=== PATIENT | female | born 1990 | race Caucasian/White ===

== ENCOUNTER 2017-03-17 16:28 | Emergency (ER) | payer BC ==
[2017-03-17 16:41] VITALS: BP 115/81; PULSE 81; TEMP 98.4; BMI 22.3
[2017-03-17] MEDS ORDERED: SODIUM CHLORIDE 1,000 ML IV STA (17:04)
[2017-03-17] MEDS ORDERED: ONDANSETRON 4 MG/2 ML VIAL IVPUSH ONE (17:04)
--- NOTE | 2017-03-17 17:09 | PDOC ---
History of Present Illness - General Chief Complaint: Pain Stated Complaint: NAUSEA/VOMITING/LMP 01/30/17 Time Seen by Provider: 03/17/17 16:44 Past History - Past Medical History Allergies/Adverse Reactions: Allergies Allergy/AdvReac Type Severity Reaction Status Date / Time No Known Allergies Allergy Verified 03/17/17 16:33 Home Medications: Ambulatory Orders Erythromycin 0.5% Eye Ointment [Erythromycin 0.5% Eye Ointment -] 1 applic OD TID #1 tube 09/27/14 Ibuprofen [Motrin -] 800 mg PO TID #30 tablet 09/27/14 Anemia: Yes Asthma: No Cancer: No Cardiac Disorders: No CVA: No COPD: No CHF: No Dementia: No Diabetes: No GI Disorders: No Disorders: No HTN: No Hypercholesterolemia: No Liver Disease: No Suicide Attempt (Hx): No Seizures: No Thyroid Disease: No - Surgical History Abdominal Surgery: Yes (TWO D AND C, LIPOSUCTION/TUMMY TUCK 08/2016) Appendectomy: No Cardiac Surgery: No Cholecystectomy: No Lung Surgery: No Neurologic Surgery: No Orthopedic Surgery: No - Reproductive History (#): 3 Para: 1 Spontaneous : 1 - Immunization History Immunization Up to Date: Yes - Psycho/Social/Smoking Cessation Hx Anxiety: No Suicidal Ideation: No Smoking Status: No Smoking History: Never smoked Have you smoked in the past 12 months: No Number of Cigarettes Smoked Daily: 0 Information on smoking cessation initiated: No Hx Alcohol Use: No Drug/Substance Use Hx: No Substance Use Type: None Hx Substance Use Treatment: No *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 - Vital Signs Last Vital Signs Temp Pulse Resp BP Pulse Ox 98.4 F 81 18 115/81 100 03/17/17 16:32 03/17/17 16:32 03/17/17 16:32 03/17/17 16:32 03/17/17 16:32
--- NOTE | 2017-03-17 17:10 | PDOC ---
Attending Attestation - Resident Resident Name: Thong Carbajal - ED Attending Attestation I have performed the following: I have examined & evaluated the patient, The case was reviewed & discussed with the resident, I agree w/resident's findings & plan, Exceptions are as noted - HPI HPI: 03/17/17 17:12 26 yo female p/w nausea and vomiting, had positive home test.Denies vaginal bleeding. . PSH tummy tuck inn 08/201603/17/17 17:16 - Physicial Exam PE: 03/17/17 19:26 Well-nourished, well-developed 26-year-old female in no acute distress. Within normal limits. Neck supple Lungs clear to auscultation. CVS regular rate and rhythm S1, S2 Abdominal exam flat, nontender, normal bowel sounds. Extremities within normal limits. Neuro alert and oriented 3, ambulatory - Medical Decision Making 03/17/17 17:15 HCG pending,pt to receive IVF,anti emetics,cbc and comp. If positive urine preg, will get bhcg
[2017-03-17] MEDS ORDERED: ONDANSETRON 4 MG/2 ML VIAL ONE (17:13)
[2017-03-17 17:26] LABS: BASOPHIL 1.4 % (0-2.0); EOSINOPHIL 1.2 % (0-4.5); MCH 22.2 pg (25.7-33.7); MCHC 31.8 g/dl (32.0-36.0); MEAN CELL VOLUME 69.8 fl (80-96); MEAN PLT VOLUME 9.1 fl (7.5-11.1); NEUTROPHILS 44.2 % (42.8-82.8); PLATELET COUNT 191 K/MM3 (134-434); RDW 14.6 % (11.6-15.6); WHITE BLOOD COUNT 4.9 K/mm3 (4.0-10.0)
[2017-03-17 17:34] LABS: URINE APPEARANCE CLOUDY; URINE BILIRUBIN NEGATIVE (NEGATIVE); URINE BLOOD 2+ (NEGATIVE); URINE COLOR YELLOW; URINE GLUCOSE (UA) NEGATIVE (NEGATIVE); URINE KETONE NEGATIVE (NEGATIVE); URINE NITRITE NEGATIVE (NEGATIVE); URINE PROTEIN NEGATIVE (NEGATIVE); URINE UROBILINOGEN NEGATIVE mg/dL (0.2-1.0)
--- NOTE | 2017-03-17 17:41 | PDOC ---
History of Present Illness - General Chief Complaint: Pain Stated Complaint: NAUSEA/VOMITING/LMP 01/30/17 Time Seen by Provider: 03/17/17 16:44 History Source: Patient Exam Limitations: No Limitations - History of Present Illness Initial Comments: 03/17/17 17:08 Patient is a 26F here today complaining of nausea and vomiting along with a positive home test. LMP was 01/30/17. Patient was denies fevers, chills, abdominal pain and vaginal bleeding. She endorses decreased PO intake and light headedness. She denies shortness of breath, chest pain and any contractions. Her prior births were uncomplicated vaginal deliveries. She has had no prior workup before today. Past History - Past Medical History Allergies/Adverse Reactions: Allergies Allergy/AdvReac Type Severity Reaction Status Date / Time No Known Allergies Allergy Verified 03/17/17 16:33 Home Medications: Ambulatory Orders Erythromycin 0.5% Eye Ointment [Erythromycin 0.5% Eye Ointment -] 1 applic OD TID #1 tube 09/27/14 Ibuprofen [Motrin -] 800 mg PO TID #30 tablet 09/27/14 Ondansetron [Ondansetron Odt] 8 mg PO BID #10 tab.rapdis 03/17/17 Anemia: Yes Asthma: No Cancer: No Cardiac Disorders: No CVA: No COPD: No CHF: No Dementia: No Diabetes: No GI Disorders: No Disorders: No HTN: No Hypercholesterolemia: No Liver Disease: No Suicide Attempt (Hx): No Seizures: No Thyroid Disease: No - Surgical History Abdominal Surgery: Yes (TWO D AND C, LIPOSUCTION/TUMMY TUCK 08/2016) Appendectomy: No Cardiac Surgery: No Cholecystectomy: No Lung Surgery: No Neurologic Surgery: No Orthopedic Surgery: No - Reproductive History (#): 3 Para: 1 Spontaneous : 1 - Immunization History Immunization Up to Date: Yes - Psycho/Social/Smoking Cessation Hx Anxiety: No Suicidal Ideation: No Smoking Status: No Smoking History: Never smoked Have you smoked in the past 12 months: No Number of Cigarettes Smoked Daily: 0 Information on smoking cessation initiated: No Hx Alcohol Use: No Drug/Substance Use Hx: No Substance Use Type: None Hx Substance Use Treatment: No Review of Systems - Review of Systems Comments:: 03/17/17 17:41 GENERAL/CONSTITUTIONAL: No fever or chills. Positive for weakness. HEAD, EYES, EARS, NOSE AND THROAT: No change in vision. No sore throat. CARDIOVASCULAR: No chest pain or shortness of breath RESPIRATORY: No cough, wheezing, or hemoptysis. GASTROINTESTINAL: Positive for nausea and vomiting. Negative for diarrhea or constipation. GENITOURINARY: No dysuria, frequency, or change in urination. SKIN: No rash NEUROLOGIC: Positive for headache. Negative for loss of consciousness, or change in strength/sensation. HEMATOLOGIC/LYMPHATIC: No anemia, easy bleeding, or history of blood clots. ALLERGIC/IMMUNOLOGIC: No hives or skin allergy. *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 - Vital Signs Last Vital Signs Temp Pulse Resp BP Pulse Ox 98.4 F 81 18 115/81 100 03/17/17 16:32 03/17/17 16:32 03/17/17 16:32 03/17/17 16:32 03/17/17 16:32 - 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 Comments: 03/17/17 17:42 GENERAL: Awake, alert, and fully oriented, in no acute distress HEAD: No signs of trauma, normocephalic, atraumatic EYES: PERRLA, EOMI, sclera anicteric, conjunctiva clear ENT: Auricles normal inspection, hearing grossly normal, nares patent, oropharynx clear without exudates. Dry mucosa LUNGS: No distress, speaks full sentences, clear to auscultation bilaterally HEART: Regular rate and rhythm, normal S1 and S2, no murmurs, rubs or gallops, peripheral pulses normal and equal bilaterally. ABDOMEN: Soft, nontender, normoactive bowel sounds. No guarding, no rebound. No masses EXTREMITIES: Normal inspection, Normal range of motion, no edema. No clubbing or cyanosis. NEUROLOGICAL: Cranial nerves II through XII grossly intact. Normal speech, no focal sensorimotor deficits SKIN: Warm, Dry, no rashes or lesions noted. ED Treatment Course - LABORATORY CBC & Chemistry Diagram: 03/17/17 17:08 03/17/17 17:08 Medical Decision Making - Medical Decision Making 03/17/17 17:43 26F with no significant medical history here today complaining of nausea and vomiting after a positive test. Patient appears tired. Vital signs normal and stable. Upreg positive. Will evaluate with labs, quant, and ultrasound. 03/17/17 17:47 Laboratory Tests 03/17/17 03/17/17 17:08 17:08 WBC 4.9 D Hgb 11.9 D Hct 37.4 D Plt Count 191 Urine HCG, Qual Positive CBC normal, preg test positive. *DC/Admit/Observation/Transfer Diagnosis at time of Disposition: Nausea and vomiting in Qualifiers: Weeks of gestation: unspecified Qualified Code(s): Z34.90 - Encounter for supervision of normal , unspecified, unspecified trimester - Prescriptions Prescriptions: Ondansetron [Ondansetron Odt] 8 mg PO BID #10 tab.pinkydis
[2017-03-17 17:56] LABS: ALBUMIN 3.7 g/dl (3.4-5.0); ANION GAP 8 (8-16); BILIRUBIN,TOTAL 0.2 mg/dL (0.2-1.0); CALCIUM 9.1 mg/dL (8.5-10.1); CO2 25 mmol/L (21-32); CREATININE 0.6 mg/dL (0.55-1.02); GLUCOSE,RANDOM 86 mg/dL (74-106); SGOT/AST 11 U/L (15-37); SGPT/ALT 18 U/L (12-78); TOT PROT 7.2 g/dl (6.4-8.2)
[2017-03-17 18:00] LABS: HYPOCHROMIA 1+; MACROCYTOSIS 1+; MICROCYTOSIS 1+; OVALOCYTE 1+; PLATELET ESTIMATE ADEQUATE (NORMAL); POIKILOCYTOSIS 1+
[2017-03-17 18:11] LABS: ALK PHOS 34 U/L (45-117)
[2017-03-17 18:52] LABS: URINE BACTERIA RARE /hpf (NONE SEEN); URINE MUCUS FEW; URINE RBC 4 /hpf (0-3); URINE WBC 18 /hpf (3-5)
--- NOTE | 2017-03-17 18:56 | PDOC ---
*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 - Vital Signs Signed out to me by Dr. Earle Zimmerman. presents with n/v while , taking some PO, controlled here in the ED with Zofran, no US or care yet, awaiting US early OB here in the ED, LMP 01/30/17. If this shows IUP without complication she likely can go home. Last Vital Signs Temp Pulse Resp BP Pulse Ox 98.4 F 81 18 115/81 100 03/17/17 16:32 03/17/17 16:32 03/17/17 16:32 03/17/17 16:32 03/17/17 16:32 ED Treatment Course - LABORATORY CBC & Chemistry Diagram: 03/17/17 17:08 03/17/17 17:08 - ADDITIONAL ORDERS Additional order review: Laboratory Results 03/17/17 03/17/17 17:08 17:08 Sodium 136 Potassium 3.9 Chloride 103 Carbon Dioxide 25 Anion Gap 8 BUN 12 D Creatinine 0.6 D Creat Clearance w eGFR > 60 Random Glucose 86 Calcium 9.1 Total Bilirubin 0.2 AST 11 L D ALT 18 D Alkaline Phosphatase 34 L D Total Protein 7.2 Albumin 3.7 D Beta HCG, Quant 44719.0 Urine Color Yellow Urine Appearance Cloudy Urine pH 5.0 Urine Protein Negative Urine Glucose (UA) Negative Urine Ketones Negative Urine Blood 2+ H Urine Nitrite Negative Urine Bilirubin Negative Urine Urobilinogen Negative Urine HCG, Qual Positive 03/17/17 17:08 RBC 5.35 H D MCV 69.8 L MCHC 31.8 L RDW 14.6 MPV 9.1 Neutrophils % 44.2 Lymphocytes % 44.2 H Monocytes % 9.0 Eosinophils % 1.2 Basophils % 1.4 D - Medications Given in the ED: ED Medications Discontinued Medications Generic Name Dose Route Start Last Admin Trade Name Freq PRN Reason Stop Dose Admin Sodium Chloride 1,000 mls @ 1,000 mls/hr 03/17/17 17:04 03/17/17 17:43 Normal Saline - IV 03/17/17 18:03 1,000 mls/hr ASDIR STA Administration Ondansetron HCl 4 mg 03/17/17 17:04 03/17/17 17:00 Zofran Injection IVPUSH 03/17/17 17:05 4 mg ONCE ONE Administration Medical Decision Making - Medical Decision Making Pt's US results showing proper placement IUP. UA with 18 WBC, granted there are moderate epithelial cells. Low threshold to treat for UTI; will send Rx for Keflex to her pharmacy. She is appropriate for OP management with [facility]. Return precautions are discussed and she is discharged home. *DC/Admit/Observation/Transfer Diagnosis at time of Disposition: Nausea and vomiting in Qualifiers: Weeks of gestation: unspecified Qualified Code(s): Z34.90 - Encounter for supervision of normal , unspecified, unspecified trimester UTI (urinary tract infection) Qualifiers: Urinary tract infection type: acute cystitis Hematuria presence: without hematuria Qualified Code(s): N30.00 - Acute cystitis without hematuria - Discharge Dispostion Disposition: HOME Condition at time of disposition: Stable Admit: No - Prescriptions Prescriptions: Cephalexin [Keflex] 500 mg PO BID #14 capsule Ondansetron [Ondansetron Odt] 8 mg PO BID #10 tab.rapdis - Patient Instructions Printed Discharge Instructions: DI for Hyperemesis Gravidarum Additional Instructions: You were seen today for nausea and vomiting during . Some of this is likely normal, but we also checked your urine and found some white blood cells which could indicate a bladder infection. We are sending a prescription for antibiotic to your pharmacy, as well as Zofran for nausea. Please follow up with your PCP or [facility] doctor, or you can return to the ED for any new or worsening symptoms like fever, severe back pain, or vomiting that you cannot control with medications.
== END 2017-03-17 20:31 | disposition home or self-care (01) ==
LOC: JER 16:28
PROC: 3E0337Z Introduction of Electrolytic and Water Balance Substance into Peripheral Vein, Percutaneous Approach (ICD-10-PCS; principal; 2017-03-17)
PROC: 3E033GC Introduction of Other Therapeutic Substance into Peripheral Vein, Percutaneous Approach (ICD-10-PCS; 2017-03-17)
DX: O26.891 Other specified pregnancy related conditions, first trimester (principal); O21.0 Mild hyperemesis gravidarum; Z3A.01 Less than 8 weeks gestation of pregnancy
CPT/HCPCS: 36415; 76817-TC; 80053; 81003; 81015; 84702; 84703; 85025; 99283-25

== ENCOUNTER 2017-07-12 15:49 | Emergency (ER) | payer BC, OTHER ==
[2017-07-12 15:55] VITALS: BMI 25.7
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
[2017-07-12] MEDS ORDERED: ACETAMINOPHEN 325 MG TABLET (FP) PO ONE (17:28)
[2017-07-12 17:39] LABS: BASO % 0.4 % (0-2.0); EOS % 3.9 % (0-4.5); HEMATOCRIT 27.5 % (32.4-45.2); HEMOGLOBIN 8.8 GM/dL (10.7-15.3); LYMPH % 26.4 % (8-40); MCH 22.5 pg (25.7-33.7); MCHC 31.9 g/dl (32.0-36.0); MEAN CELL VOLUME 70.7 fl (80-96); MEAN PLT VOLUME 9.1 fl (7.5-11.1); MONO % 9.8 % (3.8-10.2); NEUT % 59.5 % (42.8-82.8); PLATELET COUNT 192 K/MM3 (134-434); RBC 3.89 M/mm3 (3.60-5.2); RDW 13.6 % (11.6-15.6); URINE APPEARANCE CLOUDY; URINE BILIRUBIN NEGATIVE (NEGATIVE); URINE BLOOD NEGATIVE (NEGATIVE); URINE COLOR YELLOW; URINE GLUCOSE (UA) NEGATIVE (NEGATIVE); URINE KETONE NEGATIVE (NEGATIVE); URINE NITRITE NEGATIVE (NEGATIVE); URINE PROTEIN NEGATIVE (NEGATIVE); URINE UROBILINOGEN NEGATIVE mg/dL (0.2-1.0); WHITE BLOOD COUNT 6.8 K/mm3 (4.0-10.0)
[2017-07-12 17:40] LABS: URINE LEUK ESTERASE 3+ (NEGATIVE)
[2017-07-12] MEDS ORDERED: ACETAMINOPHEN 325 MG TABLET (FP) ONE (17:57)
[2017-07-12 18:16] LABS: ANION GAP 9 (8-16); BLOOD UREA NITROGEN 7 mg/dL (7-18); CALCIUM 8.9 mg/dL (8.5-10.1); CHLORIDE 105 mmol/L (98-107); CO2 24 mmol/L (21-32); CREATININE 0.5 mg/dL (0.55-1.02); GLUCOSE,RANDOM 71 mg/dL (74-106); POTASSIUM 3.8 mmol/L (3.5-5.1); SGOT/AST 18 U/L (15-37); SGPT/ALT 25 U/L (12-78); SODIUM 138 mmol/L (136-145); TOT PROT 6.5 g/dl (6.4-8.2)
[2017-07-12 18:17] LABS: ALK PHOS 41 U/L (45-117); BILIRUBIN,TOTAL < 0.1 mg/dL (0.2-1.0); EPI CELLS MODERATE /HPF (FEW); URINE BACTERIA FEW /hpf (NONE SEEN); URINE MUCUS RARE
--- NOTE | 2017-07-12 18:21 | PDOC ---
Attending Attestation - Resident Resident Name: Sina Montelongo - ED Attending Attestation I have performed the following: I have examined & evaluated the patient, The case was reviewed & discussed with the resident, I agree w/resident's findings & plan, Exceptions are as noted - HPI HPI: 07/12/17 18:20 26 yo female who reports being 23 weeks has c/o dizziness ,shortness of breath . 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 She is 23 weeks and is followed by Dr Naqvi -HPI Nausea,dizzines,sob PMH anemia -in reviewing her old medical records she has been admitted in 2013 for symptomatic anemia and received iron transfusions -she also had a holter monitor and echo at the time
[2017-07-12] MEDS ORDERED: NITROFURANTOIN MACROCRYSTAL 50 MG CAPSULE (FP) PO SCH (19:00)
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
[2017-07-12 19:29] VITALS: BP 106/64; PULSE 77; TEMP 98.4
[2017-07-12] MEDS ORDERED: NITROFURANTOIN MACROCRYSTAL 50 MG CAPSULE (FP) ONE (19:30)
== END 2017-07-12 19:34 | disposition home or self-care (01) ==
LOC: JER 15:49
DX: O26.892 Other specified pregnancy related conditions, second trimester (principal); O23.43 Unspecified infection of urinary tract in pregnancy, third trimester; E16.1 Other hypoglycemia; Z3A.23 23 weeks gestation of pregnancy
CPT/HCPCS: 36415; 76815; 80053; 81003; 81015; 85025; 99282-25

== ENCOUNTER 2017-11-01 10:10 | Inpatient (IN) | payer BC ==
[2017-11-01] MEDS ORDERED: ELECTROLYTE-148 SOLN 500 ML IV ONE (10:11)
[2017-11-01] MEDS ORDERED: ELECTROLYTE-148 SOLN 1,000 ML IV ONE (10:25)
[2017-11-01] MEDS ORDERED: TUBERCULIN PPD 5 TU/0.1ML SYRINGE (IN PATIENT USE ONLY) ID ONE ×2 (10:29→13:45)
[2017-11-01] MEDS ORDERED: ONDANSETRON 4 MG/2 ML VIAL IVPUSH PRN (10:36)
[2017-11-01] MEDS ORDERED: morphine SULFATE/Preservative Free 0.5 MG/ML (1cc Syringe) ONE (10:44)
[2017-11-01] MEDS ORDERED: BUPIVACAINE 0.75% IN DEXTROSE/PF 2ML AMPULE NR ONE (10:47)
[2017-11-01] MEDS ORDERED: SODIUM CHLORIDE 0.9% P/F 10 ML VIAL IJ ONE (10:58)
[2017-11-01] MEDS ORDERED: ceFAZolin SODIUM 1 GM VIAL ONE (10:58)
[2017-11-01 11:01] LABS: BASO % 0.5 % (0-2.0); EOS % 0.7 % (0-4.5); HEMATOCRIT 30.7 % (32.4-45.2); HEMOGLOBIN 9.8 GM/dL (10.7-15.3); LYMPH % 37.2 % (8-40); MCH 22.8 pg (25.7-33.7); MCHC 31.9 g/dl (32.0-36.0); MEAN CELL VOLUME 71.6 fl (80-96); MEAN PLT VOLUME 8.8 fl (7.5-11.1); MONO % 8.8 % (3.8-10.2); NEUT % 52.8 % (42.8-82.8); PLATELET COUNT 115 K/MM3 (134-434); RBC 4.29 M/mm3 (3.60-5.2); RDW 18.5 % (11.6-15.6); WHITE BLOOD COUNT 5.6 K/mm3 (4.0-10.0)
[2017-11-01] MEDS ORDERED: KETOROLAC TROMETHAMINE 30 MG/1 ML VIAL ONE (11:08)
[2017-11-01] MEDS ORDERED: CITRIC ACID/SODIUM CITRATE 30 ML UNIT-DOSE CUP PO ONE (11:11)
[2017-11-01 11:15] LABS: INR 1.03 (0.82-1.09); PROTHROMBIN TIME (PATIENT) 11.6 SEC (9.7-13.0)
[2017-11-01 11:17] LABS: ACTIVATED PTT 27.9 SECONDS (26.9-34.4)
[2017-11-01 11:27] LABS: ANION GAP 7 (8-16); BLOOD UREA NITROGEN 6 mg/dL (7-18); CHLORIDE 107 mmol/L (98-107); CO2 23 mmol/L (21-32); CREATININE 0.6 mg/dL (0.55-1.02); GLUCOSE,RANDOM 76 mg/dL (74-106); POTASSIUM 3.5 mmol/L (3.5-5.1); SODIUM 137 mmol/L (136-145)
[2017-11-01 11:29] VITALS: BMI 28.3
[2017-11-01] MEDS ORDERED: ePHEDrine SULFATE 50 MG/1 ML AMPULE ONE (11:31)
[2017-11-01 11:51] LABS: ARTERIAL BLOOD GAS BASE EXCESS -2.1 meq/l (-2-2); ARTERIAL BLOOD GAS PCO2 46.8 mmHg (35-45); ARTERIAL BLOOD GAS pH 7.32 (7.35-7.45)
[2017-11-01 11:53] LABS: ARTERIAL BLD GAS O2 SATURATION 17.5 % (90-98.9); ARTERIAL BLOOD GAS PO2 10.8 mmHg (80-100)
[2017-11-01 11:55] LABS: VENOUS PC02 41.5 mmHg (38-52); VENOUS PH 7.36 (7.32-7.42)
[2017-11-01 11:58] LABS: VENOUS PO2 18.1 mmHg (28-48)
[2017-11-01] MEDS ORDERED: ELECTROLYTE-148 SOLN 1,000 ML IV SCH (12:34)
[2017-11-01] MEDS ORDERED: OXYTOCIN 20 UNITS in 0.9% NS 20 UNIT/1,000 ML INFUS.BAG IV ONE ×3 (12:48→16:30)
[2017-11-01 13:24] LABS: BASO % 0.2 % (0-2.0); EOS % 0.2 % (0-4.5); HEMATOCRIT 27.6 % (32.4-45.2); HEMOGLOBIN 8.8 GM/dL (10.7-15.3); LYMPH % 18.6 % (8-40); MCH 23.1 pg (25.7-33.7); MEAN CELL VOLUME 72.3 fl (80-96); MEAN PLT VOLUME 9.4 fl (7.5-11.1); MONO % 4.9 % (3.8-10.2); NEUT % 76.1 % (42.8-82.8); PLATELET COUNT 116 K/MM3 (134-434); RBC 3.82 M/mm3 (3.60-5.2); RDW 18.7 % (11.6-15.6); WHITE BLOOD COUNT 7.8 K/mm3 (4.0-10.0)
[2017-11-01] MEDS ORDERED: OXYTOCIN 20 UNITS in 0.9% NS 20 UNIT/1,000 ML INFUS.BAG IV SCH (14:00)
[2017-11-01] MEDS ORDERED: WITCH HAZEL 50% (TUCKS) 40 PAD/JAR PAD TP PRN (17:24)
[2017-11-01] MEDS ORDERED: METHYLERGONOVINE MALEATE 0.2 MG/1 ML AMP IM PRN (17:24)
[2017-11-01] MEDS ORDERED: D5W-LR W/ 20 UNITS OXYTOCIN 1,000 ML IV SCH (17:30)
--- NOTE | 2017-11-01 17:34 | HP ---
Past Medical History - Primary Care Physician PCP:: Quincy Shi - Admission Chief Complaint: 26yo female P2 with at EGA 39w3d admitted with spontaneous active labor and active genital HSV outbreak. History of Present Illness: Pt was diagnosed with active genital HSV outbreak on 10/30/2017 and started on Valtrex. Pt presents today with active spontaneous labor and 8cm dilated, no SROM. 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: Alzheimer's, CVA, Dementia, Migraine, Multiple Sclerosis, Peripheral Neuropathy, Parkinson's, Seizure, Syncope, TIA, Vertigo, Other Cardiovascular: No: AFIB, Aneurysm, Aortic Insufficiency, Aortic Stenosis, CAD, CHF, Deep Vein Thrombosis, HTN, Hyperlipdemia, MA, Mitral Insufficiency, Mitral Stenosis, Murmur, Pulmonary Hypertension, Other Pulmonary: No: Asthma, Bronchitis, Cancer, COPD, O2 Dependent, Pneumonia, Previously Intubated, Pulmonary Embolus, Pulmonary Fibrosis, Sleep Apnea, Other Gastrointestinal: No: Ascites, Cancer, Constipation, Crohn's Disease, Diverticulitis, Diverticulosis, Esophageal Varices, Gastritis, GERD, GI Bleed, Hemorrhoids, Hiatal Hernia, Inflamatory Bowel Disease, Irritable Bowel Disease, Pancreatitis, Peptic Ulcer Disease, Ulcerative Colitis, Other Hepatobiliary: No: Cirrhosis, Cholelithiasis, Cholecystitis, Choledocholithiasis , Hepatitis A, Hepatitis B, Hepatitis C, Other Renal/: Yes: UTI. No: Renal Failure, Renal Inusuff, BPH, Cancer, Hematuria, Hemodialysis, Neurogenic Bladder, Renal Calculi, Other Reproductive: Yes: Fibroids ...: 4 ...Para: 2 ...Term: 2 ...: 1 ...Spon : 1 ...Induced : 0 ...Multiple Gestation: 0 ...LMP: 01/29/17 ... Weeks Gestation by Dates: 39.3 ...EDC by Dates: 11/04/17 ...EDC by Sono: 11/05/17 Heme/Onc: Yes: Anemia Infectious Disease: Yes: STD's (Genital HSV) Psych: No: Addictions, Anxiety, Bipolar, Depression, Panic, Psychosis, Schizophrenia, Other Musculoskeletal: No: Bursitis, Chronic low back pain, Hemiparesis, Hemiplegia, Osteoarthritis, Paraplegia, Other Rheumatology: No: Fibromyalgia, Gout, Lupus, Rheumatoid Arthritis, Sarcoidosis, Vasculitis, Other ENT: No: Allergic Rhinitis, Sinusitis, Other Endocrine: No: Arlington's Disease, Casanova's Disease, Diabetes Insipidus, Diabetes Mellitus, Hyperparathyroidism, Hyperthyroidism, Hypothyroidism, Osteopenia, SIADH, Other Dermatology: No: Basal Cell, Cellulitis, Eczema, Melanoma, Psoriasis, Squamous Cell, Other - Past Surgical History Hx Myomectomy: No Hx Transabdominal Cerclage: No Additional Surgical History: Abdominoplasty, Breast augmentation, D&C - Smoking History Smoking history: Never smoked Have you smoked in the past 12 months: No Aproximately how many cigarettes per day: 0 - Alcohol/Substance Use Hx Alcohol Use: No History of Substance Use: reports: None - Social History Usual Living Arrangement: Yes: With Child ADL: Independent 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 History of Recent Travel: No Home Medications - Allergies Allergies/Adverse Reactions: Allergies Allergy/AdvReac Type Severity Reaction Status Date / Time No Known Allergies Allergy Verified 11/01/17 11:45 - Home Medications Home Medications: Ambulatory Orders Iron 1 tab PO DAILY 10/30/17 Family Disease History - Family Disease History Family History: Unable to Obtain (Pt with labor pain) Review of Systems - Review of Systems Constitutional: reports: Other (Labor pain) Eyes: reports: No Symptoms HENT: reports: No Symptoms Neck: reports: No Symptoms Cardiovascular: reports: No Symptoms Respiratory: reports: No Symptoms Gastrointestinal: reports: No Symptoms Genitourinary: reports: Other (Labor pain) Breasts: reports: No Symptoms Reported Musculoskeletal: reports: No Symptoms Integumentary: reports: No Symptoms Neurological: reports: No Symptoms Endocrine: reports: No Symptoms Hematology/Lymphatic: reports: No Symptoms Psychiatric: reports: No Symptoms Pain Intensity: 9 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 - Maternity Vital Signs: Vital Signs Temperature 97.9 F 11/01/17 14:49 Pulse Rate 98 H 11/01/17 14:49 Respiratory Rate 20 11/01/17 17:00 Blood Pressure 103/71 11/01/17 14:49 O2 Sat by Pulse Oximetry (%) 100 11/01/17 12:45 Constitutional: Yes: Well Nourished, Moderate Distress (labor pain) Eyes: Yes: WNL, Conjunctiva Clear, EOM Intact HENT: Yes: WNL, Atraumatic, Normocephalic Neck: Yes: WNL, Supple, Trachea Midline Cardiovascular: Yes: WNL, Regular Rate and Rhythm Lungs: Clear to auscultation, Normal air movement - Abdominal Exam/OB Fundal Height: 37 Number of Fetuses: Single Presentation: Vertex Contractions: Yes Regularity: Regular Intensity: Mod/Strong Monitor Mode: External Heart Rate (range): 150 Heart Rate Location: Midline Category: I Accelerations: Non-Uniform Decelerations: None - Vaginal Exam/OB Vaginal Bleediing: No Speculum Exam: No Dilatation (cm): 8 Effacement (%): 100 Amniotic Membrane Status: Intact Presentation: Vertex/Position Station: -1 - 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 Musculoskeletal: Yes: WNL Extremities: Yes: WNL Edema: No Integumentary: Yes: WNL, Other (abdominoplasty hypertrophic scar) Deep Tendon Reflex Grade: Normal +2 ...Motor Strength: WNL Psychiatric: Yes: WNL, Alert. No: Oriented - Labs Lab Results: CBC, BMP 11/01/17 13:10 11/01/17 10:40 Hemorrhage Risk Assessment - Risk Factors Medium Risk Factors: Yes: None High Risk Factors: Yes: None Risk Score: 1 Risk Level: Medium Risk Assessment/Plan 26yo female P2 with at EGA 39w3d admitted with spontaneous active labor and active genital HSV outbreak. Fetus with Category I tracing. Pt with active HSV outbreak. We discussed delivery options and risks of vertical HSV transmission. ACOG recommendations were discussed at length. Patient was explained that delivery does not completely prevent vertical transmission to the . Transmission has been documented in the setting of sxn performed before membrane rupture. Risks, benefits, alternatives of sxn were explained, including but not limited to infection, bleeding, trauma/ injury to underlying organs and structures (e.g. ureter, bladder, bowel, etc.). Possible need for blood transfusion or additional surgery to repair any injuries, were discussed. Patient understands that all surgical treatments have risks and no guarantees can be provided. The patient requested to proceed with surgery. The patient requested a section. Neonatology, anesthesia, and surgical elastic knitter were called in. Plan to proceed with emergency delivery. 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 - 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 Pelvic Exam: Yes: ulcers (aroung perineum/vulva)
[2017-11-01] MEDS ORDERED: IBUPROFEN 800 MG/8 ML IJ IVPB PRN (18:02)
--- NOTE | 2017-11-01 18:14 | OP ---
Operative Note - Note: Operative Date: 11/01/17 Pre-Operative Diagnosis: at EGA 39w 3d with active spont labor and genital HSV outbreak Operation: Primary LT C/S Findings: Live baby girl in vtx presentation, no meconium in amniotic fluid. 9 and 9. Post-Operative Diagnosis: Same as Pre-op Surgeon: Quincy Shi Electrical Automation Engineer: Reinaldo Williamson Anesthesiologist/CHIEF ESTIMATOR: Vinh Carvajal Anesthesia: Spinal Specimens Removed: Placenta Estimated Blood Loss (mls): 700 Drains & Tubes with Location: Oliveira cath Drains, Volume Out (mls): 75 Blood Volume Replaced (mls): 0 Fluid Volume Replaced (mls): 1,800 Operative Report Dictated: Yes
[2017-11-01 19:09] LABS: BASO % 0.3 % (0-2.0); HEMATOCRIT 25.7 % (32.4-45.2); HEMOGLOBIN 8.5 GM/dL (10.7-15.3); LYMPH % 14.5 % (8-40); MCH 23.6 pg (25.7-33.7); MCHC 32.9 g/dl (32.0-36.0); MEAN CELL VOLUME 71.8 fl (80-96); MEAN PLT VOLUME 9.2 fl (7.5-11.1); MONO % 6.3 % (3.8-10.2); NEUT % 78.9 % (42.8-82.8); PLATELET COUNT 104 K/MM3 (134-434); RBC 3.58 M/mm3 (3.60-5.2); RDW 18.3 % (11.6-15.6); WHITE BLOOD COUNT 9.9 K/mm3 (4.0-10.0)
--- NOTE | 2017-11-02 07:25 | PN ---
Post Progress Note - Subjective Subjective: No complaints Post Day: 1 Type of Delivery: Repeat C/S Vital Signs: Vital Signs Temperature 98.6 F 11/02/17 06:00 Pulse Rate 67 11/02/17 06:00 Respiratory Rate 20 11/02/17 07:00 Blood Pressure 102/71 11/02/17 06:00 O2 Sat by Pulse Oximetry (%) 100 11/01/17 12:45 Breast Exam: Yes: Soft Uterus: Yes: Fundus Firm, Fundus below umbilicus, Non-tender Incision: Yes: Dressing dry and intact Abdomen/GI: Yes: Abdomen soft, Tolerating PO Lochia: Yes: Rubra Lochia, amount: Small Extremities: Yes: Calves non-tender Perineum: Yes: Intact - Labs Labs: CBC WBC 9.9 K/mm3 (4.0-10.0) 11/01/17 18:45 RBC 3.58 M/mm3 (3.60-5.2) L 11/01/17 18:45 Hgb 8.5 GM/dL (10.7-15.3) L 11/01/17 18:45 Hct 25.7 % (32.4-45.2) L 11/01/17 18:45 MCV 71.8 fl (80-96) L 11/01/17 18:45 MCH 23.6 pg (25.7-33.7) L 11/01/17 18:45 MCHC 32.9 g/dl (32.0-36.0) 11/01/17 18:45 RDW 18.3 % (11.6-15.6) H 11/01/17 18:45 Plt Count 104 K/MM3 (134-434) L 11/01/17 18:45 MPV 9.2 fl (7.5-11.1) 11/01/17 18:45 Neutrophils % 78.9 % (42.8-82.8) 11/01/17 18:45 Lymphocytes % 14.5 % (8-40) D 11/01/17 18:45 Monocytes % 6.3 % (3.8-10.2) 11/01/17 18:45 Eosinophils % 0.0 % (0-4.5) D 11/01/17 18:45 Basophils % 0.3 % (0-2.0) 11/01/17 18:45 Assessment/Plan 26yo female P3 s/p primary LT C/S, doing well stable, afebrile. Asymptomatic for anemia care instructions reviewed. Continue routine postop care. Ambulation encouraged.
[2017-11-02 07:38] LABS: BASO % 0.2 % (0-2.0); EOS % 0.2 % (0-4.5); HEMATOCRIT 27.1 % (32.4-45.2); HEMOGLOBIN 8.7 GM/dL (10.7-15.3); LYMPH % 17.5 % (8-40); MCH 23.2 pg (25.7-33.7); MEAN CELL VOLUME 72.5 fl (80-96); MEAN PLT VOLUME 9.4 fl (7.5-11.1); MONO % 6.8 % (3.8-10.2); NEUT % 75.3 % (42.8-82.8); PLATELET COUNT 122 K/MM3 (134-434); RBC 3.74 M/mm3 (3.60-5.2); RDW 18.3 % (11.6-15.6); WHITE BLOOD COUNT 8.5 K/mm3 (4.0-10.0)
--- NOTE | 2017-11-02 10:09 | PN ---
Progress Note, Physician Chief Complaint: Pt. ambulating, still has romo in place. Pain controlled, no anesthesia complaints. - Current Medication List Current Medications: Active Medications Acetaminophen (Tylenol -) 650 mg PO Q4H PRN PRN Reason: PAIN LEVEL 6-10 Bisacodyl (Dulcolax Suppository -) 10 mg RC PRN PRN PRN Reason: CONSTIPATION Diphenhydramine HCl (Benadryl Injection -) 25 mg IVPUSH Q4H PRN PRN Reason: Pruritis Last Admin: 11/01/17 16:37 Dose: 25 mg Enoxaparin Sodium (Lovenox -) 40 mg SQ DAILY KATHERINE Parenteral Electrolytes (Plasma-Lyte 148 -) 1,000 mls @ 125 mls/hr IV ASDIR KATHERINE Oxytocin/Sodium Chloride (Normal Saline+20 Units Oxytocin -) 20 unit in 1,000 mls @ 125 mls/hr IV TITR KATHERINE Ibuprofen (Motrin -) 600 mg PO Q4H PRN PRN Reason: PAIN LEVEL 1-5 Ibuprofen (Caldolor Injection -) 800 mg IVPB Q8H PRN PRN Reason: PAIN LEVEL 1-5 Last Admin: 11/02/17 06:03 Dose: 800 mg Methylergonovine Maleate (Methergine Injection -) 0.2 mg IM Q4H PRN PRN Reason: Excessive Bleeding (L&D) Ondansetron HCl (Zofran Injection) 4 mg IVPUSH Q4H PRN PRN Reason: NAUSEA Oxycodone HCl (Roxicodone -) 5 mg PO Q4H PRN PRN Reason: PAIN LEVEL 6-10 Multivit/Folic Acid/Iron ( Vitamins (Sjr) -) 1 tab PO DAILY KATHERINE Senna/Docusate Sodium (Pericolace -) 2 tablet PO HS PRN PRN Reason: CONSTIPATION Simethicone (Mylicon -) 80 mg PO Q4H PRN PRN Reason: GAS Witch Karli/Glycerin (Tucks Pads -) 1 pad TP PRN PRN PRN Reason: Pain - Topical - Objective Vital Signs: Vital Signs Temperature 98.6 F 11/02/17 06:00 Pulse Rate 67 11/02/17 06:00 Respiratory Rate 20 11/02/17 08:00 Blood Pressure 102/71 11/02/17 06:00 O2 Sat by Pulse Oximetry (%) 100 11/01/17 12:45 Constitutional: Yes: Well Nourished, No Distress, Calm Musculoskeletal: Yes: WNL Neurological: Yes: WNL, Alert, Oriented ...Motor Strength: WNL Labs: CBC, BMP 11/02/17 06:03 11/01/17 10:40 INR, PTT INR 1.03 (0.82-1.09) 11/01/17 10:40 Assessment/Plan POD#1 s/p under spinal with duramorph. Doing well. D/C from anesthesia care.
[2017-11-02] MEDS: ENOXAPARIN NA (PORCINE) 40 MG/0.4 ML DISP.SYRIN SQ SCH (10:38)
[2017-11-02] MEDS: PRENATAL VITAMINS W/ FOLIC ACID TABLET (FP) PO SCH (10:42)
[2017-11-02] MEDS: valACYclovir HCL 500 MG TABLET (FP) PO SCH ×2 (10:44→21:49)
[2017-11-02] MEDS: SIMETHICONE 80 MG TAB.CHEW (FP) PO PRN ×3 (14:27→23:33)
[2017-11-02] MEDS: oxyCODONE HCL 5 MG TABLET PO PRN ×3 (14:27→23:33)
[2017-11-02] MEDS: ACETAMINOPHEN 325 MG TABLET (FP) PO PRN ×3 (14:28→23:34)
[2017-11-02] MEDS ORDERED: BISACODYL 10 MG SUPP.RECT RC PRN (17:24)
--- NOTE | 2017-11-02 19:40 | OP ---
DATE OF OPERATION: 11/01/2017 PREOPERATIVE DIAGNOSES: at estimated gestational age of 39 weeks and 3 days with active spontaneous labor, active genital herpes outbreak. POSTOPERATIVE DIAGNOSES: at estimated gestational age of 39 weeks and 3 days with active spontaneous labor, active genital herpes outbreak. PROCEDURE: Primary low transverse section via Pfannenstiel skin incision. SURGEON: Quincy Shi MD SHOTWELD OPERATOR: THERESE Martini ANESTHESIOLOGIST: Vinh Carvajal MD ANESTHESIA: Spinal. COMPLICATIONS: None. ESTIMATED BLOOD LOSS: 700 mL URINE OUTPUT: 75 mL INTRAVENOUS FLUIDS: 1800 mL PATHOLOGY: Placenta. FINDINGS: Live baby girl in vertex presentation. No meconium in amniotic fluids. Apgars 9 and 9. DESCRIPTION OF PROCEDURE: The patient was met preoperatively. Risks, benefits, and alternatives of surgery were discussed in details. All questions were answered. The patient was brought to the OR with the IV running. She was placed on a surgical table in a sitting position. The spinal anesthesia was achieved without difficulty. The patient was then placed in a supine position with a leftward tilt. She was prepped and draped in the usual sterile fashion. A Oliveira catheter was left to drain to gravity. A Pfannenstiel skin incision was made with a knife approximately 2 cm above the pubic symphysis along the prior scar from abdominoplasty. The incision was taken down to the level of fascia. The fascia was incised in the midline. The incision was extended bilaterally using Gonzalez scissors. The fascia was dissected away from the rectus muscles superiorly and inferiorly. The rectus muscles were in the midline using sharp dissection. The peritoneum was identified and entered sharply. The peritoneal incision was then extended superiorly and inferiorly. The bladder peritoneum was then dissected away from the lower uterine segment, and the bladder was reflected downwards. The uterus was incised transversely in the lower uterine segment. The uterine incision was then extended bluntly bilaterally. The baby was delivered from vertex presentation without complications. The umbilical cord was clamped and cut. The baby was crying spontaneously and handed to the waiting management supervisor. The placenta was delivered manually without complications. The uterus was cleared of all clots and debris. The uterine incision was then repaired using a 0 Biosyn suture with a running locking stitch. Good hemostasis was achieved. The uterine incision was then imbricated using a secondary layer of closure with the 0 Biosyn suture. Once again, good hemostasis was confirmed. The bladder peritoneum was approximated using a 0 Biosyn suture. The operative site was then irrigated using copious amounts of normal saline. Once the saline was aspirated, good hemostasis was confirmed. The abdominal peritoneum was then closed using a 2-0 chromic suture. The rectus muscles were approximated in the midline using several interrupted 2-0 chromic sutures. The fascia was closed using a 0 Vicryl suture with a running stitch. The subcutaneous adipose tissues were approximated in the midline using several interrupted 2-0 chromic sutures. The skin was closed using a 3-0 Vicryl suture with a subcutaneous stitch. Sponge, lap, and needle counts were correct. The patient tolerated the procedure well and was transferred to recovery room in stable condition. Dean [id number]
[2017-11-02] MEDS: SENNOSIDES/DOCUSATE COMBO (SENNA PLUS) TABLET (UD) PO PRN (23:33)
[2017-11-03] MEDS: SIMETHICONE 80 MG TAB.CHEW (FP) PO PRN ×4 (06:28→21:02)
[2017-11-03] MEDS: ACETAMINOPHEN 325 MG TABLET (FP) PO PRN ×3 (06:28→21:03)
[2017-11-03] MEDS: oxyCODONE HCL 5 MG TABLET PO PRN ×2 (06:29→21:03)
--- NOTE | 2017-11-03 07:56 | DS ---
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-NUT STEAMER Vital Signs: Vital Signs Temperature 98.8 F 11/02/17 22:00 Pulse Rate 94 H 11/02/17 22:00 Respiratory Rate 20 11/02/17 22:00 Blood Pressure 109/72 11/02/17 22:00 O2 Sat by Pulse Oximetry (%) 100 11/01/17 12:45 Constitutional: Yes: Well Nourished, No Distress, Calm Eyes: Yes: WNL, Conjunctiva Clear, EOM Intact HENT: Yes: WNL, Atraumatic, Normocephalic Neck: Yes: WNL, Supple, Trachea Midline Cardiovascular: Yes: WNL, Regular Rate and Rhythm Respiratory: Yes: WNL, Regular, CTA Bilaterally Gastrointestinal: Yes: WNL, Normal Bowel Sounds, Soft Renal/: Yes: WNL Pelvis: Yes: WNL External Genitalia: Yes: Normal ....Post : Yes: Uterus firm, Uterus non-tender Breast(s): Yes: WNL Musculoskeletal: Yes: WNL Extremities: Yes: WNL Edema: No Wound/Incision: Yes: Clean/Dry, Well Approximated Neurological: Yes: WNL, Alert, Oriented ...Motor Strength: WNL Psychiatric: Yes: WNL, Alert, Oriented Labs: CBC, BMP 11/02/17 06:03 11/01/17 10:40 Delivery - Delivery Type of Anesthesia: Spinal Episiotomy/Laceration: None EBL (cc): 700 Delivery, Single - Stages of Labor Date 1st Stage Initiatied: 11/01/17 Time 1st Stage Initiated: 06:30 Date of Delivery: 11/01/17 Time of Delivery: 11:11 Time Placenta Delivered: 11:13 - Condition of Check Inspector/Senior Counsel Commercial Present: Yes Name: Tanner Canela Gender: Female Weight: 7 lb 8 oz Position: Left, OT Total Hours ROM (Hrs/Mins): 2min - 1 Minute Total Score: 9 5 Minutes Total Score: 9 - [place]in Feeding Plan Initial Plan: Elected not to breastfeed exclusively throughout hospitalization Discharge Summary Reason For Visit: LABOR Procedures: Principal: c/section Hospital Course: unremarkable Condition: Good - Instructions Diet, Activity, Other Instructions: Physical activity Resume your normal everyday activity as tolerated no heavy lifting or exercise until seen by your surgeon. You may walk unlimited analy of and climb stairs. You may resume driving the car when you feel safe and comfortable behind the wheel. No sexual activity as instructed. Wound care If you have a bandage, leave it on, and keep dry for 48-72 hours. After that time discard the outer bandage. If they are tapes on the skin under the out of bandage leave them in place. They will peel off in the next 7 to 10 days. Do Not Peel them off. You may shower the day after surgery. If there are tapes present on the skin, you may shower over them. Diet There are no dietary restrictions. Eat healthy, high-fiber foods. Drink 6 to 8 glasses of liquid each day. This will assist in keeping your bowels are regular. Pain management You may take Tylenol or acetaminophen or Ibuprofen (for example, Motrin, Advil etc.) from my pain prescription medication is ordered should be taken as prescribed for moderate to severe pain. Call MD for any of the following: Severe pain not relieved by medication Fever of 101 or higher Excessive bleeding or drainage on dressing Inability to urinate Referrals: Quincy Shi MD [Staff Physician] - Disposition: HOME - Home Medications Comprehensive Discharge Medication List: Ambulatory Orders Iron 1 tab PO DAILY 10/30/17
--- NOTE | 2017-11-03 07:56 | PN ---
Post Progress Note - Subjective Subjective: no complains, ambulating, tolerating PO, + flatus, voiding Post Day: 2 Type of Delivery: Primary C/S Vital Signs: Vital Signs Temperature 98.8 F 11/02/17 22:00 Pulse Rate 94 H 11/02/17 22:00 Respiratory Rate 20 11/02/17 22:00 Blood Pressure 109/72 11/02/17 22:00 O2 Sat by Pulse Oximetry (%) 100 11/01/17 12:45 Breast Exam: Yes: Soft Uterus: Yes: Fundus Firm Incision: Yes: Dressing dry and intact Abdomen/GI: Yes: Abdomen soft Lochia: Yes: Rubra Lochia, amount: Small Extremities: Yes: Calves non-tender Perineum: Yes: Intact Activity: Ambulating - Labs Labs: CBC WBC 8.5 K/mm3 (4.0-10.0) 11/02/17 06:03 RBC 3.74 M/mm3 (3.60-5.2) 11/02/17 06:03 Hgb 8.7 GM/dL (10.7-15.3) L 11/02/17 06:03 Hct 27.1 % (32.4-45.2) L 11/02/17 06:03 MCV 72.5 fl (80-96) L 11/02/17 06:03 MCH 23.2 pg (25.7-33.7) L 11/02/17 06:03 MCHC 32.0 g/dl (32.0-36.0) 11/02/17 06:03 RDW 18.3 % (11.6-15.6) H 11/02/17 06:03 Plt Count 122 K/MM3 (134-434) L 11/02/17 06:03 MPV 9.4 fl (7.5-11.1) 11/02/17 06:03 Neutrophils % 75.3 % (42.8-82.8) 11/02/17 06:03 Lymphocytes % 17.5 % (8-40) D 11/02/17 06:03 Monocytes % 6.8 % (3.8-10.2) 11/02/17 06:03 Eosinophils % 0.2 % (0-4.5) D 11/02/17 06:03 Basophils % 0.2 % (0-2.0) 11/02/17 06:03 Assessment/Plan 26yo P3 s/p Primary c/section due to HSV outbreak VSS, Afebrile doing well Baby Rh neg, no Rhogam needed Dulcolax suppository to improve bowel function Plan d/c home 11/04/17 NPV x 6 wks RTO 1 and 6 weeks
[2017-11-03] MEDS: valACYclovir HCL 500 MG TABLET (FP) PO SCH ×2 (09:15→21:03)
[2017-11-03] MEDS: PRENATAL VITAMINS W/ FOLIC ACID TABLET (FP) PO SCH (09:15)
[2017-11-03] MEDS: ENOXAPARIN NA (PORCINE) 40 MG/0.4 ML DISP.SYRIN SQ SCH (09:15)
[2017-11-03] MEDS: IBUPROFEN 600 MG TABLET (FP) PO PRN (12:26)
[2017-11-03] MEDS: SENNOSIDES/DOCUSATE COMBO (SENNA PLUS) TABLET (UD) PO PRN (21:02)
[2017-11-04] MEDS: ACETAMINOPHEN 325 MG TABLET (FP) PO PRN ×2 (05:01→09:05)
[2017-11-04] MEDS: SIMETHICONE 80 MG TAB.CHEW (FP) PO PRN ×2 (05:01→09:06)
[2017-11-04] MEDS: oxyCODONE HCL 5 MG TABLET PO PRN (05:02)
[2017-11-04 08:16] VITALS: BP 103/72; PULSE 90; TEMP 98.5
[2017-11-04 08:20] LABS: BASO % 0.5 % (0-2.0); HEMATOCRIT 25.8 % (32.4-45.2); HEMOGLOBIN 8.1 GM/dL (10.7-15.3); LYMPH % 36.9 % (8-40); MCH 22.6 pg (25.7-33.7); MCHC 31.3 g/dl (32.0-36.0); MEAN CELL VOLUME 72.3 fl (80-96); MEAN PLT VOLUME 8.7 fl (7.5-11.1); MONO % 6.6 % (3.8-10.2); PLATELET COUNT 148 K/MM3 (134-434); RBC 3.57 M/mm3 (3.60-5.2); RDW 18.5 % (11.6-15.6); WHITE BLOOD COUNT 5.6 K/mm3 (4.0-10.0)
[2017-11-04] MEDS: IBUPROFEN 600 MG TABLET (FP) PO PRN (09:04)
[2017-11-04] MEDS: valACYclovir HCL 500 MG TABLET (FP) PO SCH (09:06)
[2017-11-04] MEDS: PRENATAL VITAMINS W/ FOLIC ACID TABLET (FP) PO SCH (09:06)
[2017-11-04] MEDS: ENOXAPARIN NA (PORCINE) 40 MG/0.4 ML DISP.SYRIN SQ SCH (09:07)
--- NOTE | 2017-11-04 12:09 | PN ---
Post Progress Note - Subjective Subjective: No complaints Post Day: 3 Type of Delivery: Primary C/S Vital Signs: Vital Signs Temperature 98.5 F 11/04/17 07:40 Pulse Rate 90 11/04/17 07:40 Respiratory Rate 20 11/04/17 07:40 Blood Pressure 103/72 11/04/17 07:40 O2 Sat by Pulse Oximetry (%) 100 11/01/17 12:45 Breast Exam: Yes: Soft Uterus: Yes: Fundus Firm, Fundus below umbilicus Abdomen/GI: Yes: Abdomen soft, Tolerating PO Lochia: Yes: Rubra Lochia, amount: Small Extremities: Yes: Calves non-tender Perineum: Yes: Intact Activity: Ambulating - Labs Labs: CBC WBC 5.6 K/mm3 (4.0-10.0) D 11/04/17 07:30 RBC 3.57 M/mm3 (3.60-5.2) L 11/04/17 07:30 Hgb 8.1 GM/dL (10.7-15.3) L 11/04/17 07:30 Hct 25.8 % (32.4-45.2) L 11/04/17 07:30 MCV 72.3 fl (80-96) L 11/04/17 07:30 MCH 22.6 pg (25.7-33.7) L 11/04/17 07:30 MCHC 31.3 g/dl (32.0-36.0) L 11/04/17 07:30 RDW 18.5 % (11.6-15.6) H 11/04/17 07:30 Plt Count 148 K/MM3 (134-434) D 11/04/17 07:30 MPV 8.7 fl (7.5-11.1) 11/04/17 07:30 Neutrophils % 54.0 % (42.8-82.8) D 11/04/17 07:30 Lymphocytes % 36.9 % (8-40) D 11/04/17 07:30 Monocytes % 6.6 % (3.8-10.2) 11/04/17 07:30 Eosinophils % 2.0 % (0-4.5) D 11/04/17 07:30 Basophils % 0.5 % (0-2.0) 11/04/17 07:30 Assessment/Plan 26yo female P3 s/p primary LT C/S, doing well stable, afebrile. Asymptomatic for anemia care instructions reviewed. Continue routine postop care. Ambulation encouraged.
--- NOTE | 2017-11-04 15:52 | PATH ---
Surgical Pathology Report Patient Name: UZMA SERVIN [facility]. Rec. 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 Specimen(s) Received PLACENTA Clinical History Primary Genital herpes Final Diagnosis PLACENTA, SECTION: 517 g THIRD TRIMESTER PLACENTA WITH TRIVASCULAR UMBILICAL CORD AND UNREMARKABLE PLACENTAL MEMBRANES. Electronically Signed Carol Rowley M.D. Gross Description The specimen is received fresh labeled placenta and is a 517 gram, 19.0 x 8.0 x 3.2 cm. placenta with attached membranes and umbilical cord. The attached membranes are reddy, translucent with focal opacities and insert marginally. The umbilical cord measures 13.5 cm. in length and averages 1.2 cm. in diameter. The cord inserts eccentrically, 6 cm. to the nearest margin. No true knots or strictures are identified. Cut surface of the umbilical cord reveals 3 vessels. The surface is iqbal-blue with minimal fibrin deposition and appropriate caliber vessels. The maternal surface is red-brown with focal defects. Sectioning reveals red-brown, spongy parenchyma. No lesions are identified. Assistant Professor Of Marine Biology sections are submitted in three cassettes as follows: 1- membrane rolls and umbilical cord; 2-3- full thickness sections of placenta. /11/03/2017 [facility]11/03/2017
== END 2017-11-04 12:20 | disposition home or self-care (01) | DRG 766 ==
LOC: JLDR 10:10 → J3W 13:00
PROVIDERS: ADMIT Obstetrics & Gynecology; ATTEND Obstetrics & Gynecology
PROC: 10D00Z1 Extraction of Products of Conception, Low, Open Approach (ICD-10-PCS; principal; 2017-11-01)
DX: O98.52 Other viral diseases complicating childbirth (principal); Z3A.39 39 weeks gestation of pregnancy; Z37.0 Single live birth
CPT/HCPCS: 36415; 36600; 80048; 82803; 85025; 85610; 85730; 86593; 86850; 86900; 86901; 88307-TC